=== PATIENT | male | born 1950 | race Caucasian/White ===

== ENCOUNTER 2017-01-09 13:23 | Inpatient (IN) | payer MEDICARE, OTHER ==
[~2017-01-09] VITALS: Ht 180.3 cm; Wt 116.6 kg
[2017-01-09] MEDS ORDERED: ALBUTEROL SULFATE 2.5 MG/3 ML NEBU NEB ONE (15:45)
[2017-01-09] MEDS ORDERED: IPRATROPIUM BROMIDE 0.5 MG/2.5 ML NEBU NEB ONE (15:45)
[2017-01-09] MEDS ORDERED: methylPREDNISolone SOD SUCC 125 MG/2 ML VIAL IV ONE (15:45)
--- NOTE | 2017-01-09 15:56 | NUR ---
PT IS IN ROOM #1B. DR MOISE EVALUATED THE PT.
[2017-01-09 16:06] LABS: BASOPHILS # (AUTO) 0.3 K/uL (0.0-8.0); BASOPHILS % (AUTO) 2.7 % (0.0-2.0); EOSINOPHILS # (AUTO) 0.3 K/uL (0.0-0.7); EOSINOPHILS % (AUTO) 2.5 % (0.0-7.0); HEMATOCRIT 45.7 % (40-50); HEMOGLOBIN 15.1 G/DL (14.0-18.0); LYMPHOCYTES # (AUTO) 1.6 K/UL (0.8-4.8); LYMPHOCYTES % (AUTO) 12.6 % (20.5-51.5); MEAN CORPUSCULAR HEMOGLOBIN 30.3 UUG (27.0-31.0); MEAN CORPUSCULAR HGB CONC 33 g/dL (32.0-37.0); MEAN CORPUSCULAR VOLUME 91.6 FL (82.0-92.0); MONOCYTES # (AUTO) 0.7 K/UL (0.1-1.30); MONOCYTES % (AUTO) 5.2 % (0.0-11.0); NEUTROPHILS # (AUTO) 9.7 K/UL (1.8-8.9); PLATELET COUNT (AUTO) 318 K/UL (150-450); RED BLOOD CELL COUNT(AUTO) 4.99 MIL/UL (4.7-6.1); WHITE BLOOD COUNT (AUTO) 12.6 K/UL (4.0-11.2)
[2017-01-09 16:07] LABS: CREATININE 1.2 mg/dL (0.6-1.3); POTASSIUM 3.9 mmol/L (3.5-5.1)
[2017-01-09] MEDS ORDERED: methylPREDNISolone SOD SUCC 125 MG/2 ML VIAL ONE (16:08)
[2017-01-09] MEDS ORDERED: ALBUTEROL SULFATE 2.5 MG/3 ML NEBU ONE (16:16)
[2017-01-09] MEDS ORDERED: ALBUTEROL SULFATE 2.5 MG/ 0.5 ML NEBU ONE (16:17)
[2017-01-09] MEDS ORDERED: IPRATROPIUM BROMIDE 0.5 MG/2.5 ML NEBU ONE (16:17)
[2017-01-09 16:19] LABS: BILIRUBIN,DIRECT 0.2 mg/dL (0.0-0.2); BILIRUBIN,TOTAL 0.6 mg/dL (0.2-1.0); TOTAL PROTEIN, SERUM 8.7 g/dL (6.4-8.2)
[2017-01-09] MEDS ORDERED: RIVAROXABAN 15 MG TABLET ONE (17:48)
--- NOTE | 2017-01-09 17:49 | NUR ---
REPORT WAS GIVEN TO SOIL FERTILITY SPECIALIST. PT WAS TRANSFERED TO TELEMETRY ROOM #230.
[2017-01-09] MEDS ORDERED: RIVAROXABAN 15 MG TABLET PO SCH (18:00)
[2017-01-09 18:59] VITALS: BP 128/74
--- NOTE | 2017-01-09 19:00 | NUR ---
report received from ER. pt vitals assessed. vitals stable. physical assessment done. pt is alert and oriented x4. pt is on athletic monitor. pt has a right calf scab. no other wounds seen. pt has bilateral lower dimished lung sounds. pt coughs up secretion. pt on 02L nc. pt complains of pain on right leg 3/10. no swelling noted. pain aggrevated on movement. all other interventions done upon admission. will enodorse to assistant casino shift manager nurse.
[2017-01-09 19:07] LABS: BAND % (MANUAL) 10 % (0-10); EOSINOPHILS % (MANUAL) 2 % (0-8); LYMPHOCYTES % (MANUAL) 13 % (20-40); MONOCYTES % (MANUAL) 7 % (2-10); NEUTROPHILS % (MANUAL) 68 % (42-75)
--- NOTE | 2017-01-09 19:20 | NUR ---
RECEIVED PATIENT IN BED, ALERT ORIENTED, NO SOB NO CHEST PAIN NOTED, KEPT R LEG ELEVATED, NO COMPLAIN OF PAIN, RHYTHM SINUS RHYTHM AT THIS TIME. CONT TO MONITOR.
[2017-01-09 21:40] VITALS: BP 126/76
[2017-01-09] MEDS ORDERED: MORPHINE SULFATE 2 MG/1 ML DISP.SYRIN IV PRN (22:00)
[2017-01-09] MEDS ORDERED: ACETAMINOPHEN 325 MG TABLET PO PRN (22:00)
[2017-01-09] MEDS ORDERED: MAGNESIUM HYDROXIDE 30 ML LIQUID UDC PO PRN (22:00)
[2017-01-09] MEDS ORDERED: Z GUARD REMEDY PASTE 57 GM TUBE TOP PRN (22:00)
[2017-01-09] MEDS ORDERED: HYDROCODONE/APAP 10-325 MG TABLET PO PRN (22:00)
[2017-01-09] MEDS ORDERED: ONDANSETRON 4 MG/2 ML VIAL IV PRN (22:00)
[2017-01-09] MEDS: IV NS 1000 ML 1,000 ML IV PRN (22:32)
[2017-01-10 00:18] VITALS: BP 108/64
[2017-01-10] MEDS ORDERED: HYDROCODONE/APAP 5-325MG TABLET ONE (04:40)
[2017-01-10] MEDS: HYDROCODONE/APAP 5-325MG TABLET PO PRN ×2 (04:45→06:04)
[2017-01-10 04:51] LABS: BASOPHILS % (AUTO) 0.1 % (0.0-2.0); HEMATOCRIT 40.4 % (40-50); HEMOGLOBIN 13.6 G/DL (14.0-18.0); LYMPHOCYTES # (AUTO) 0.9 K/UL (0.8-4.8); LYMPHOCYTES % (AUTO) 7.1 % (20.5-51.5); MEAN CORPUSCULAR HGB CONC 34 g/dL (32.0-37.0); MEAN CORPUSCULAR VOLUME 92.5 FL (82.0-92.0); MONOCYTES # (AUTO) 0.3 K/UL (0.1-1.30); MONOCYTES % (AUTO) 2.6 % (0.0-11.0); NEUTROPHILS # (AUTO) 12.2 K/UL (1.8-8.9); NEUTROPHILS % (AUTO) 90.2 % (38.5-71.5); PLATELET COUNT (AUTO) 336 K/UL (150-450); RED BLOOD CELL COUNT(AUTO) 4.37 MIL/UL (4.7-6.1); WHITE BLOOD COUNT (AUTO) 13.4 K/UL (4.0-11.2)
[2017-01-10 04:58] LABS: BILIRUBIN,TOTAL 0.2 mg/dL (0.2-1.0); CREATININE 1.4 mg/dL (0.6-1.3); MAGNESIUM 2.1 mg/dL (1.8-2.4); PHOSPHOROUS 3.9 mg/dL (2.5-4.9); POTASSIUM 4.4 mmol/L (3.5-5.1); TOTAL PROTEIN, SERUM 7.8 g/dL (6.4-8.2)
--- NOTE | 2017-01-10 05:21 | NUR ---
PATIENT SLEPT FOR FEW HOURS, NO SOB NO CHEST PAIN, NOTED, COMPLAIN OF GEN BODY PAIN GIVEN PAIN MEDS WITH HELP AFTER ONE HOURS, RHYTHM IS SINUS RHYTHM CONT TO MONITOR.
[2017-01-10 05:58] LABS: THYROID STIMULATING HORMONE 1.108 mIU/mL (0.358-3.740)
[2017-01-10] MEDS: RIVAROXABAN 15 MG TABLET PO SCH ×2 (10:49→18:36)
[2017-01-10] MEDS: IV NS 1000 ML 1,000 ML IV PRN (10:57)
[2017-01-10 12:14] VITALS: BP 120/69
[2017-01-10] MEDS ORDERED: CEFTRIAXONE 1 G VIAL IM SCH (15:30)
--- NOTE | 2017-01-10 15:31 | NUR ---
Pt refused VQ scan, states "I need to talk to dr. chawla before receiving the scan. Also, I need my antibiotics -- I have pneumonia." Paged Dr. chawla, dr is aware of pt's request. Per Dr Binta Chawla Rocephine 1g IV q24 hr, Zithromax 250 mg daily for 7 days.
[2017-01-10 15:56] VITALS: BP 113/67
--- NOTE | 2017-01-10 16:00 | NUR ---
PT WENT TO VQ SCAN
--- NOTE | 2017-01-10 17:03 | NUR ---
UNABLE TO GIVE IV MEDS SINCE PT IS NOT TIN THE ROOM
[2017-01-10] MEDS: AZITHROMYCIN IV 250 MG in IV DEXTROSE 5% 250 ML IV SCH (17:29)
[2017-01-10] MEDS: CEFTRIAXONE 2 G in IV DEXTROSE 5% 100 ML IV SCH (18:36)
--- NOTE | 2017-01-10 19:00 | NUR ---
received in bed alert oriented, no sob no chest pain, rhythm sinus rhythm, patient eating meals brought by family, no complain of pain, with on and off cough with small amount whitish color sputum. call light within reach.
--- NOTE | 2017-01-10 19:15 | NUR ---
pt is noted to cough, white /thin sputum is noted. lungs are clear/diminished on bilateral side. pt is o2 NC at 2L. No pain noted. Iv intact/patent. Pt is reminded not to ambulate. Urinal is by the bedside. All safety needs are met.
[2017-01-10 20:00] VITALS: BP 112/69
[2017-01-10] MEDS ORDERED: DEXAMETHASONE SOD PHOSPHATE 4 MG INJ IM ONE (20:45)
[2017-01-10] MEDS ORDERED: HYDROCODONE BIT/HOMATROPINE 5 ML UDC PO PRN (20:45)
[2017-01-10] MEDS ORDERED: GUAIFENESIN LA 600 MG TABLET.SA PO ONE (21:50)
[2017-01-10] MEDS: GUAIFENESIN LA 600 MG TABLET.SA PO SCH (21:58)
[2017-01-11] VITALS: BP 113/63
--- NOTE | 2017-01-11 00:33 | NUR ---
patient complain of insomnia, given ambien 5mg with effective results, no complain of pain at this time, cont to monitor.
[2017-01-11] MEDS: ZOLPIDEM 5 MG TABLET PO PRN ×2 (00:35→20:55)
[2017-01-11 04:00] VITALS: BP 112/60
[2017-01-11] MEDS: IV NS 1000 ML 1,000 ML IV PRN (05:11)
--- NOTE | 2017-01-11 05:29 | NUR ---
patient slept most of the night, no sob no chest pain, rhythm is sinus rhythm, still with moist cough with small amount sputum whitish color, able to expectorate, call light within reach. cont to monitor.
[2017-01-11] MEDS: IPRATROPIUM BROMIDE 0.5 MG/2.5 ML NEBU NEB SCH ×4 (07:22→19:19)
[2017-01-11] MEDS: ALBUTEROL SULFATE 2.5 MG/ 0.5 ML NEBU NEB SCH ×4 (07:22→19:19)
--- NOTE | 2017-01-11 08:00 | NUR ---
Discussed plan of care with pt. Encourage cough and deep breath, cooperate with hhn tx, encouraged no milk to prevent mucus product. call light is within reach. Pt agreeable with plan of care.
[2017-01-11] MEDS: RIVAROXABAN 15 MG TABLET PO SCH ×2 (08:24→17:10)
[2017-01-11] MEDS: GUAIFENESIN LA 600 MG TABLET.SA PO SCH ×2 (08:24→20:55)
--- NOTE | 2017-01-11 09:00 | NUR ---
Sputum specimen sent to lab. Pt more comfortable after hhn tx this am.
[2017-01-11 11:27] VITALS: BP 116/70
[2017-01-11] MEDS: AZITHROMYCIN IV 250 MG in IV DEXTROSE 5% 250 ML IV SCH (14:58)
[2017-01-11 16:02] VITALS: BP 110/62
[2017-01-11] MEDS: CEFTRIAXONE 2 G in IV DEXTROSE 5% 100 ML IV SCH (16:51)
--- NOTE | 2017-01-11 18:23 | NUR ---
Pt is in no acute distress. Call light is within reach. Plan of care effective.
--- NOTE | 2017-01-11 19:45 | NUR ---
PT RECEIVED IN BED, AWAKE. FRIENDS AT BEDSIDE. A/O X4. ABLE TO MAKE NEEDS KNOWN. V/S STABLE. IN NO ACUTE DISTRESS. NO C/O PAIN AT THIS TIME. IVF INFUSING. BILATERAL LEGS ELEVATED. NO C/O SOB. SAFETY MEASURES IMPLEMENTED. CALL LIGHT WITHIN REACH. WILL CONT TO MONITOR.
[2017-01-11 20:05] VITALS: BP 115/66
[2017-01-11] MEDS: LACTOBACILLUS RHAMNOSUS GG 1 EACH CAPSULE PO SCH (20:55)
[2017-01-11] MEDS: HYDROCODONE BIT/HOMATROPINE 5 ML UDC PO PRN (22:48)
[2017-01-12] MEDS: IV NS 1000 ML 1,000 ML IV PRN (00:25)
--- NOTE | 2017-01-12 06:00 | NUR ---
END OF SHIFT NOTES. PT SLEPT WELL THROUGHOUT SHIFT. IN STABLE CONDITION. IVF INFUSING. PT VERBALIZES THAT IT IS EASIER TO BREATH. ALL NEEDS ATTENDED. SAFETY MAINTAINED. CALL LIGHT WITHIN REACH.
[2017-01-12 06:03] VITALS: BP 127/82
[2017-01-12 06:47] LABS: BASOPHILS % (AUTO) 0.5 % (0.0-2.0); EOSINOPHILS # (AUTO) 0.2 K/uL (0.0-0.7); HEMATOCRIT 37.4 % (40-50); HEMOGLOBIN 12.4 G/DL (14.0-18.0); LYMPHOCYTES # (AUTO) 3.2 K/UL (0.8-4.8); LYMPHOCYTES % (AUTO) 32.5 % (20.5-51.5); MEAN CORPUSCULAR HEMOGLOBIN 30.5 UUG (27.0-31.0); MEAN CORPUSCULAR HGB CONC 33 g/dL (32.0-37.0); MONOCYTES # (AUTO) 0.6 K/UL (0.1-1.30); MONOCYTES % (AUTO) 6.4 % (0.0-11.0); NEUTROPHILS # (AUTO) 5.8 K/UL (1.8-8.9); NEUTROPHILS % (AUTO) 58.6 % (38.5-71.5); PLATELET COUNT (AUTO) 304 K/UL (150-450); RED BLOOD CELL COUNT(AUTO) 4.06 MIL/UL (4.7-6.1); WHITE BLOOD COUNT (AUTO) 9.8 K/UL (4.0-11.2)
[2017-01-12] MEDS: IPRATROPIUM BROMIDE 0.5 MG/2.5 ML NEBU NEB SCH ×3 (07:21→15:23)
[2017-01-12] MEDS: ALBUTEROL SULFATE 2.5 MG/ 0.5 ML NEBU NEB SCH ×3 (07:21→15:23)
[2017-01-12 07:23] LABS: CREATININE 1.3 mg/dL (0.6-1.3); MAGNESIUM 2.2 mg/dL (1.8-2.4); PHOSPHOROUS 4.2 mg/dL (2.5-4.9); POTASSIUM 4.4 mmol/L (3.5-5.1)
--- NOTE | 2017-01-12 08:00 | NUR ---
AWAKE ALERT COOPERATE WELL NO PAIN OR SOB RESTING WITH CALL LIGHT IN REACH
[2017-01-12] MEDS: LACTOBACILLUS RHAMNOSUS GG 1 EACH CAPSULE PO SCH (09:22)
[2017-01-12] MEDS: RIVAROXABAN 15 MG TABLET PO SCH ×2 (09:22→16:55)
[2017-01-12] MEDS: GUAIFENESIN LA 600 MG TABLET.SA PO SCH (09:26)
--- NOTE | 2017-01-12 10:30 | NUR ---
OFE PARKER SEEN PATIENT AND LAB RESULT AND ORDER OK TO D/C TO SNF WITH ORDERS
[2017-01-12] MEDS ORDERED: ALBU2.5V13 NEB (11:52)
[2017-01-12] MEDS ORDERED: GUAI600T53 PO (11:52)
[2017-01-12] MEDS ORDERED: CEFU500T66 PO (11:52)
[2017-01-12] MEDS ORDERED: LACT1CAP57 PO (11:52)
[2017-01-12] MEDS ORDERED: RIVA15TA PO (11:52)
[2017-01-12] MEDS ORDERED: IPRA0.2S6 NEB (11:52)
[2017-01-12 12:11] VITALS: BP 124/71
--- NOTE | 2017-01-12 14:03 | NUR ---
The patient will be discharged today to [facility] [ ; [id number] [place] [address]] via [facility]. He requested [facility] because his mother was in the facility in the past. Spoke to Daly from [facility] and she confirmed that they will admit the patient today. His RN, Joel, is aware of his discharge plan and will call the facility for the report.
--- NOTE | 2017-01-12 15:00 | NUR ---
D/C INSTRUCTION REGARDING TO F/U WITH OWN PMD CONTINUE HOME MEDICINE ORDER AT SNF [facility] WILL D/C PRIOR D/C TO SNF TODAY EDUCATION PK GAVE ,VERBALIZES UNDERSTAND AND SIGNS D/C SHEET
--- NOTE | 2017-01-12 15:30 | NUR ---
REPORT GIVEN TO NURSE AT [facility]
[2017-01-12] MEDS: HYDROCODONE BIT/HOMATROPINE 5 ML UDC PO PRN (15:43)
[2017-01-12] MEDS ORDERED: AZITHROMYCIN 250 MG TABLET PO SCH (16:00)
[2017-01-12 16:07] VITALS: BP 131/82
[2017-01-12] MEDS: CEFTRIAXONE 2 G in IV DEXTROSE 5% 100 ML IV SCH (16:55)
--- NOTE | 2017-01-12 17:45 | NUR ---
D/C TO [facility] CONDITION STABLE
== END 2017-01-12 17:45 | DRG 299 ==
LOC: ER 13:23 → TELE 17:56 → MED 01-11 14:47
PROVIDERS: ADMIT Nurse Practitioner Acute Care; ATTEND Nurse Practitioner Acute Care
DX: I82.411 Acute embolism and thrombosis of right femoral vein (principal); J15.9 Unspecified bacterial pneumonia; N17.0 Acute kidney failure with tubular necrosis; M79.672 Pain in left foot; J98.01 Acute bronchospasm
CPT/HCPCS: 36415; 70030-TC; 71010; 73630; 78579; 83605; 83735; 84100; 84443; 84550; 85025; 85730; 87040; 87070; 93005; 93307; 94640; A4663; A9540; A9567; J0456; J0696; J1100; J2930; J3590; J7030; J7060; Q0144